=== PATIENT | female | born 1950 | race Caucasian/White ===

== ENCOUNTER 2017-05-05 19:52 | Emergency (ER) | payer BC ==
--- NOTE | ~2017-05-05 | CR2 ---
[facility] A Service of [facility] & [facility] RADIOLOGY TEXT RESULTS PATIENT: Obi BEACH LOCATION: [facility] : 52 UNIT #: [id number] AGE: [address]: Bob Bond MD SEX: F ORDER DR: [id number] [facility] [address] [place], [place] [address] [id number] E MR#: [id number] #: [id number] NAME: Obi BEACH : 1950 SEX: F STUDY DATE/TIME: 05/05/2017 20:25 UNIT: [facility] ROOM: STUDY DESCRIPTION: CR Abdomen Acute Series Attending Physician: Bob Bond M.D. Ordering Physician: Bob Bond M.D. Primary Care Physician: Primary Care Physician No MEDICAL IMAGING REPORT This report is preliminary unless electronic signature is present EXAM Acute abdomen series, 05/05/2017 HISTORY 66-year-old female with abdominal pain and shortness of air for [address] abdomen and pelvis, 08/06/2016 FINDINGS Frontal chest and 2 flat and upright views of the abdomen. Three total images. Lungs and pleural spaces are clear. No pneumothorax. Heart size and mediastinum are normal. Pulmonary vasculature normal. The bowel gas pattern is nonobstructive. No free intraperitoneal air. No pathologic calcifications. Mild levoconvex lumbar scoliosis. IMPRESSION No acute chest or abdominal findings. Mild levoconvex lumbar scoliosis. Dictated by... Steve Rao M.D. THIS IS AN ELECTRONICALLY VERIFIED REPORT Steve Rao M.D. at 05/06/2017 10:[address]/[place] TD: 05/05/2017 21:38 JOB #: [id number] MEDICAL IMAGING REPORT Page 1 of 1 COPY
[~2017-05-05 19:52] MED LIST: AMBIEN10 MG PO; GEODON20 MG PO; LAMICTAL XR200 MG PO; ZYRTEC5 M2 PO
[2017-05-05 21:42] LABS: HEMATOCRIT 37.9 % (35.0-45.0); HEMOGLOBIN 13.1 gm/dL (12.0-16.0); LYMPHOCYTE# 1.3 X10e3 (1.0-3.5); LYMPHOCYTE% 11.5 % (17.0-45.0); MEAN CELL VOLUME 84.8 FL (83-96); MEAN CORPUSCULAR HEMOGLOBIN 29.2 PG (28-34); MEAN CORPUSCULAR HGB CONC 34.5 g/dL (30-36); MEAN PLATELET VOLUME 6.5 FL (6.5-11.5); MONOCYTE# 0.6 X10e3 (0-1.0); MONOCYTE% 5.3 % (3.0-12.0); NEUTROPHIL# 9.6 X10e3 (1.5-7.1); NEUTROPHIL% 83.2 % (40-75); PLATELET COUNT 415 X10e3 (140-420); RED BLOOD COUNT 4.47 X10e (3.90-5.30); RED CELL DISTRIBUTION WIDTH 12.6 % (11.0-15.5); WHITE BLOOD COUNT 11.5 X10e3 (4.0-10.5)
[2017-05-05 21:48] LABS: DIFF IND NO
[2017-05-05 22:13] LABS: ALBUMIN SERUM 4.4 g/dL (3.5-5.0); BILIRUBIN, DIRECT 0.2 mg/dL (0.0-0.2); BILIRUBIN,INDIRECT 0.5 mg/dL (0.0-0.9); BILIRUBIN,TOTAL 0.7 mg/dL (0.2-2.0); CREATININE SERUM 0.5 mg/dL (0.6-1.4); GLOM FILT RATE Estimated 101.6 mL/min (>60); POTASSIUM 3.8 mmol/L (3.5-5.1); PROTEIN TOTAL SERUM 7.7 g/dL (6.0-8.3)
[2017-05-05 22:36] LABS: URINE SOURCE CLEAN CATCH
[2017-05-05 22:39] LABS: URINE APPEARANCE CLEAR; URINE BILIRUBIN NEG (NEG); URINE BLOOD 1+ (NEG); URINE COLOR YELLOW; URINE GLUCOSE NEG (NEG); URINE KETONE 3+ (NEG); URINE LEUKOCYTE ESTERASE NEG (NEG); URINE NITRATE NEG (NEG); URINE PROTEIN NEG (NEG); URINE SPECIFIC GRAVITY 1.011 (1.003-1.035); URINE UROBILINOGEN 0.2 MG/DL (NEG)
[2017-05-05 22:42] LABS: CULTURE INDICATED? NO; URINE BACTERIA AUWI NEG (NEGATIVE); URINE SQUAMOUS EPITHELIAL CELL OCC /[HPF]; UWBCS1 AUWI 0-2 (0-5)
[2017-05-06 01:12] LABS: CALCIUM SERUM 7.9 mg/dL (8.4-10.2); CREATININE SERUM 0.4 mg/dL (0.6-1.4); GLOM FILT RATE Estimated 109.3 mL/min (>60); POTASSIUM 3.2 mmol/L (3.5-5.1)
== END 2017-05-06 01:44 | disposition home or self-care (01) ==
LOC: CED 19:52
PROVIDERS: Emergency Medicine
DX: E87.1 Hypo-osmolality and hyponatremia (principal)
CPT/HCPCS: 36415; 74022; 80048; 80076; 81003; 83690; 85025; 96361; 96374; 99284; J2405